=== PATIENT | female | born 2000 ===

== ENCOUNTER 2018-07-06 19:14 | Emergency (ER) | payer OTHER ==
[2018-07-06 19:20] VITALS: RESP 18; TEMP 98.7
--- NOTE | 2018-07-06 19:40 | ED PDOC ---
Arrival/HPI - General Chief Complaint: Abnormal Skin Integrity Time Seen by Provider: 07/06/18 19:36 Historian: Patient - History of Present Illness Narrative History of Present Illness (Text): 07/06/18 19:37 18 year old female, with no significant past medical history, who presents to the ED c/o a laceration to the 3rd digit of the right hand obtained TIRE MOLDER. 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 Patient states tetanus is not up to date. Patient denies any numbness, tingling, pain to hand, or any other complaints. Time/Duration: Prior to Arrival Symptom Course: Unchanged Activities at Onset: Light Context: Work Past Medical History - Provider Review Nursing Documentation Reviewed: Yes - Psychiatric Hx Substance Use: No Family/Social History - Physician Review Nursing Documentation Reviewed: Yes Family/Social History: Unknown Family HX Smoking Status: Never Smoked Hx Alcohol Use: No Hx Substance Use: No Allergies/Home Meds Allergies/Adverse Reactions: Allergies No Known Allergies Allergy (Verified 07/06/18 19:20) Review of Systems - Physician Review All systems were reviewed & negative as marked: Yes - Review of Systems Constitutional: Normal Eyes: Normal ENT: Normal Respiratory: Normal. absent: SOB, Cough Cardiovascular: Normal. absent: Chest Pain Gastrointestinal: Normal. absent: Abdominal Pain Genitourinary Female: Normal. absent: Dysuria, Frequency Musculoskeletal: Normal Skin: Laceration (3rd digit of rt hand). absent: Rash Neurological: Normal Endocrine: Normal Hemo/Lymphatic: Normal Psychiatric: Normal Physical Exam Vital Signs Reviewed: Yes Vital Signs Temp Pulse Resp BP Pulse Ox 07/06/18 21:59 85 18 129/82 100 07/06/18 19:16 98.7 F 81 18 133/72 99 Temperature: Afebrile Blood Pressure: Normal Pulse: Regular Respiratory Rate: Normal Appearance: Positive for: Well-Appearing, Non-Toxic, Comfortable Pain Distress: None Mental Status: Positive for: Alert and Oriented X 3 - Systems Exam Upper Extremity: Present: Normal Inspection, Normal ROM, NORMAL PULSES, Neurovascularly Intact, Capillary Refill < 2s, Norm 2-Pt Discrimination. No: Cyanosis, Edema, Temperature Abnormalties Lower Extremity: Present: Normal Inspection. No: Edema Neurological: Present: GCS=15, CN II-XII Intact, Speech Normal, Motor Func Grossly Intact, Normal Sensory Function Skin: Present: Warm, Dry, Laceration (x shaped laceration (2cm)). No: Rashes Psychiatric: Present: Alert, Oriented x 3, Normal Insight, Normal Concentration Medical Decision Making ED Course and Treatment: 07/06/18 19:42 Impression: 18 year old female presents to the ED complaining of laceration to 3rd digit of right hand obtained TIRE MOLDER. Plan: -- Reassess and Disposition -- Keflex po -- Naprosyn PO -- Tdap IM Progress Notes: XR R 3rd digit : no fracture, no dislocation, as read by PA Case d/w Dr. Bravo, he agrees to come to the ER to evaluate the patient and repair the laceration. Patient seen and evaluated by Dr. Bravo. Laceration was repaired by him. She was instructed to follow up in his office as per his instructions. Patient verbalize understanding of instructions. - RAD Interpretation Radiology Orders: 07/06/18 19:45 HAND RIGHT 3RD DIGIT (FINGER) [RAD] Stat - Medication Orders Current Medication Orders: Discontinued Medications Cephalexin Monohydrate (Keflex) 500 mg PO STAT STA PRN Reason: Protocol Stop: 07/06/18 19:46 Last Admin: 07/06/18 20:28 Dose: 500 mg Naproxen (Anaprox Ds) 550 mg PO ONCE STA Stop: 07/06/18 19:46 Last Admin: 07/06/18 20:27 Dose: 550 mg Tetanus/Reduced Diphtheria/Acell Pertussis (Boostrix Vaccine Inj) 0.5 ml IM .ONCE ONE Stop: 07/06/18 19:46 Last Admin: 07/06/18 20:27 Dose: 0.5 ml - PA / PIE CHEF / Resident Statement MD/DO has reviewed & agrees with the documentation as recorded. - Scribe Statement The provider has reviewed the documentation as recorded by the Scribe Kelsi Smith All medical record entries made by the Scribe were at my direction and personally dictated by me. I have reviewed the chart and agree that the record accurately reflects my personal performance of the history, physical exam, medical decision making, and the department course for this patient. I have also personally directed, reviewed, and agree with the discharge instructions and disposition. Disposition/Present on Arrival - Present on Arrival Any Indicators Present on Arrival: No History of DVT/PE: No History of Uncontrolled Diabetes: No Urinary Catheter: No History of Decub. Ulcer: No History Surgical Site Infection Following: None - Disposition Have Diagnosis and Disposition been Completed?: Yes Diagnosis: Finger laceration Disposition: HOME/ ROUTINE Disposition Time: 21:15 Patient Plan: Discharge Condition: STABLE Discharge Instructions (ExitCare): Laceration Repair Print Language: OCCITAN Additional Instructions: Thank you for letting us take care of you today. You were treated for finger laceration. The emergency medical care you received today was directed at your acute symptoms. If you were prescribed any medication, please fill it and take as directed. It may take several days for your symptoms to resolve. Return to the Emergency Department if your symptoms worsen, do not improve, or if you have any other problems. Please call one of the physicians/clinics you have been referred to that are listed on the Patient Visit Information form that is included in your discharge packet. Bring any paperwork you were given at discharge with you along with any medications you are taking to your follow up visit. Our treatment cannot replace ongoing medical care by a primary care provider (PCP) outside of the emergency department. Thank you for allowing the [facility] team to be part of your care today. If you had an X-Ray: A Radiologist will review the ED reading if any change in treatment is needed we will contact you. Prescriptions: Cephalexin [Keflex] 500 mg PO Q6 #28 capsule Naproxen 500 mg PO BID PRN #20 tablet PRN Reason: Pain, Moderate (4-7) Referrals: Elda Bravo MD [Staff Provider] - Follow up with primary Forms: [facility] (Greenlandic), WORK NOTE
[2018-07-06] MEDS ORDERED: TDAP Vaccine 0.5 mL Syr IM ONE (19:45)
[2018-07-06] MEDS ORDERED: Naproxen 550 mg Tab PO STA (19:45)
[2018-07-06 22:25] VITALS: BP 129/82; PULSE 85; O2SAT 100
--- NOTE | 2018-07-07 12:57 | RAD ---
Date of service: 07/06/2018 PROCEDURE: Right middle finger radiographs. HISTORY: trauma COMPARISON: None. TECHNIQUE: AP radiograph of the right hand, as well as spot oblique and lateral images of right middle finger were obtained. FINDINGS: RIGHT MIDDLE FINGER: Right middle finger normal, without fracture of focal lesion. Remainder of the right hand (as seen on the AP view) grossly unremarkable. JOINTS: Normal. SOFT TISSUES: Normal. OTHER FINDINGS: None. IMPRESSION: No evidence of acute fracture or dislocation.
--- NOTE | 2018-07-09 08:18 | OP ---
Copied To: Elda Bravo MD Attending MD: Elda Bravo MD PROCEDURE DATE: 07/06/2018 SURGEON: Elda Bravo MD. PREOPERATIVE DIAGNOSES: 1. Right middle finger total of 3.5 cm laceration. 2. Possible right middle finger digital nerve laceration. POSTOPERATIVE DIAGNOSES: 1. Right middle finger total of 3.5 cm laceration. 2. Possible right middle finger digital nerve laceration. PROCEDURE PERFORMED: 1. Exploration of penetrated wound in right middle finger. 2. Complex repair of 3.5 cm right middle finger laceration. ANESTHESIA: Regional, 1. Right middle finger radial digital nerve block. 2. Right middle finger ulnar digital nerve block. INDICATIONS FOR THE PROCEDURE: As follows, please refer to my separately dictated ER consultation for history and physical. DESCRIPTION OF PROCEDURE: As follows, 0.5 Marcaine mixed with 1% lidocaine was used in right middle finger radial and ulnar digital nerve block. After allowing sufficient time for the anesthetic to take effect, the wound was thoroughly irrigated and soaked in normal saline and dilute Betadine. The area was prepped and draped in usual clean and sterile manner. A tourniquet was placed at the base of the right middle finger which was removed at the end of the case. I made the incision larger with a scissor to explore the digital nerves. There did not appear to be any injuries after my exploration of the . I debrided some of the irregular skin edges on the dorsal and volar aspects, undermined it, to take the tension off the wound and then closed the skin with 5-0 chromic suture in an interrupted fashion and also some 5-0 nylon sutures. I removed the tourniquet. Placed Xeroform dry sterile dressing. The patient tolerated the procedure well and was eventually discharged home from the Emergency Room in stable condition. Postop wound care, limitation of physical activities, the fact there will a scar, the possibility of permanent paresthesias and the possible need for future procedures was discussed and all questions were answered. Elda Bravo MD
--- NOTE | 2018-07-09 08:21 | CON ---
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 She presented to the Emergency Room with multiple lacerations of her right middle finger as well as some sensitivity of the tip of the finger. There was concern for a nerve injury that was consulted with the hand surgeon on-call. PHYSICAL EXAMINATION: EXTREMITIES: In the patient's right middle finger, there were multiple stellate lacerations on the dorsal aspect as well as the volar tip measuring a total of 3.5 cm. She had some paresthesias to the tip of the finger distal to the laceration. She is able to flex and extend the digit normally, but is limited secondary to pain and swelling. There was good capillary refill. The bones were not tender. An x-ray did not show any fractures or foreign bodies. I explained to the patient through a lumber sorter machine that she may have injured her digital nerves. I would explore for them in the emergency room and then I will suture her wounds close. I told her she needs to be on antibiotics because it was a dirty mechanism of injury. I told her she has to follow up with me and she may need to have further surgical procedures or have permanent paresthesias to the tip of the finger. She understood this and wished to proceed. I will now dictate a separate operative report. Elda Bravo MD
== END 2018-07-06 21:59 | disposition home or self-care (01) ==
LOC: ED 19:14 → MERGE 19:14 → ED 21:59
DX: S61.212A Laceration without foreign body of right middle finger without damage to nail, initial encounter (principal); W29.0XXA Contact with powered kitchen appliance, initial encounter; Y92.511 Restaurant or cafe as the place of occurrence of the external cause; Y99.0 Civilian activity done for income or pay; Z23 Encounter for immunization